=== PATIENT | male | born 1990 | race Hispanic/Latino ===

== ENCOUNTER 2020-02-24 10:33 | Emergency (ER) | payer OTHER ==
[2020-02-24] MEDS ORDERED: LIDOCAINE HCL 1% 20 ML VIAL ONE (10:44)
[2020-02-24] MEDS ORDERED: ACETAMINOPHEN 500 MG TABLET ONE (11:17)
[2020-02-24] MEDS ORDERED: TETANUS/DIPHTHERIA TOXOID [ADULT] 0.5 ML VIAL IM ONE (11:17)
== END 2020-02-24 12:07 ==
LOC: EDH 10:33
DX: S01.01XA Laceration without foreign body of scalp, initial encounter (principal); Z72.0 Tobacco use; X58.XXXA Exposure to other specified factors, initial encounter; Y93.02 Activity, running; Y92.89 Other specified places as the place of occurrence of the external cause; Y99.8 Other external cause status
CPT/HCPCS: 12032; 90471; 90714